=== PATIENT | female | born 1960 ===

== ENCOUNTER 2017-06-12 14:21 | Emergency (ER) | payer MEDICAID, OTHER ==
[2017-06-12 14:21] VITALS: BMI 29.0
[2017-06-12 14:41] VITALS: BP 150/91; PULSE 75; RESP 18; TEMP 97; O2SAT 100
--- NOTE | 2017-06-12 15:40 | ED PDOC ---
HPI: Female Pain Time Seen by Provider: 06/12/17 15:18 Chief Complaint (Nursing): Female Genitourinary Chief Complaint (Provider): Post menopausal bleeding History Per: Patient Additional Complaint(s): 57 yo female, PMH of HTN, presents to ED with complaints of lower abdominal pain vaginal bleeding x 3 days. Pt post menopausal x 4 yers now. Past Medical History Reviewed: Nursing Documentation, Vital Signs Vital Signs: Last Vital Signs Temp 97 F L 06/12/17 14:39 Pulse 75 06/12/17 14:39 Resp 18 06/12/17 14:39 BP 150/91 H 06/12/17 14:39 Pulse Ox 100 06/12/17 14:39 - Medical History PMH: HTN - Surgical History Surgical History: Cholecystectomy - Family History Family History: States: Unknown Family Hx - Living Arrangements Living Arrangements: With Family - Social History Current smoker - smoking cessation education provided: No Alcohol: None Drugs: Denies - Home Medications Home Medications: Ambulatory Orders Medication Instructions Recorded traMADol [Ultram] 50 mg PO Q8 PRN #12 tab 06/19/16 Ibuprofen [Motrin] 600 mg PO Q6 #20 tab 06/12/17 Sulfamethoxazole/Trimethoprim 1 tab PO BID 5 Days tab 06/12/17 [Bactrim DS 800 mg-160 mg] - Allergies Allergies/Adverse Reactions: Allergies Allergy/AdvReac Type Severity Reaction Status Date / Time No Known Allergies Allergy Verified 06/19/16 12:18 Review of Systems ROS Statement: Except As Marked, All Systems Reviewed And Found Negative Gastrointestinal: Positive for: Abdominal Pain Physical Exam - Reviewed Nursing Documentation Reviewed: Yes Vital Signs Reviewed: Yes - Physical Exam Appears: Positive for: Well, Non-toxic, No Acute Distress Head Exam: Positive for: ATRAUMATIC, NORMAL INSPECTION, NORMOCEPHALIC Skin: Positive for: Normal Color, Warm, DRY Eye Exam: Positive for: EOMI, Normal appearance, PERRL ENT: Positive for: Normal ENT Inspection Neck: Positive for: Normal, Painless ROM Cardiovascular/Chest: Positive for: Regular Rate, Rhythm Respiratory: Positive for: CNT, Normal Breath Sounds Gastrointestinal/Abdominal: Positive for: Normal Exam, Bowel Sounds, Soft Pelvic Exam: Positive for: External Exam Normal, Speculum Exam Normal. Negative for: Active Bleeding Back: Positive for: Normal Inspection Extremity: Positive for: Normal ROM Neurologic/Psych: Positive for: Alert, Oriented - Laboratory Results Result Diagrams: 06/12/17 16:14 06/12/17 16:14 - ECG O2 Sat by Pulse Oximetry: 100 Medical Decision Making Medical Decision Making: IV access established and treatment initiated with Toradol IV Diagnostics ordered Labs resulted and reviewed with Pt who demonstrated full understanding. IMPRESSION: The central endometrial echo complex is mildly thickened for postmenopausal status. With clinical history of postmenopausal bleeding, Clinical follow-up is advised and if clinically indicated, endometrial sampling may be performed to exclude carcinoma PICC No evidence of fibroid uterus. No ovarian cyst or adnexal mass. Importance of follow up with [facility] was stressed. Pt reports she will call clinic tomorrow for follow up Disposition - Clinical Impression Clinical Impression: Post-menopausal bleeding - Disposition [facility] Disposition Time: 17:00 Condition: STABLE Prescriptions: Ibuprofen [Motrin] 600 mg PO Q6 #20 tab Sulfamethoxazole/Trimethoprim [Bactrim DS 800 mg-160 mg] 1 tab PO BID 5 Days tab Instructions: Dysfunctional Uterine Bleeding (ED) Forms: [employer] ([place]) Print Language: NIGERIAN
[2017-06-12 16:18] LABS: BASO % 0.8 % (0.0-2.0); EOS # 0.2 K/uL (0.0-0.7); EOS % 3.1 % (0.0-4.0); HEMATOCRIT 41.3 % (34.0-47.0); LYMPH # 2.3 K/uL (1.0-4.3); MEAN CELL VOLUME 90.5 fl (81.0-99.0); MEAN CORPUSCULAR HEMOGLOBIN 30.2 pg (27.0-31.0); MEAN CORPUSCULAR HGB CONC 33.4 g/dL (33.0-37.0); MEAN PLATELET VOLUME 8.7 fl (7.2-11.7); MONO # 0.4 K/uL (0.0-0.8); MONO % 7.4 % (0.0-10.0); NEUT % 50.7 % (50.0-75.0); RED CELL DISTRIBUTION WIDTH 14.5 % (11.5-14.5)
[2017-06-12 16:28] LABS: RBC URINE 1 /hpf (0-3); URINE BACTERIA MANY (<OCC); URINE BILIRUBIN NEGATIVE (NEGATIVE); URINE BLOOD NEGATIVE (NEGATIVE); URINE COLOR YELLOW (YELLOW); URINE GLUCOSE (UA) NEG (Normal); URINE KETONE NEGATIVE (NEGATIVE); URINE LEUKOCYTE ESTERASE NEG Leu/uL (Negative); URINE PROTEIN NEGATIVE (NEGATIVE); URINE UROBILINOGEN 0.2-1.0 mg/dL (0.2-1.0); WBC URINE 6 /hpf (0-5)
[2017-06-12 16:36] LABS: BILIRUBIN,TOTAL 0.8 mg/dl (0.2-1.3); CALCIUM 9.2 mg/dL (8.4-10.2); CARBON DIOXIDE 25 mmol/L (22-30); CHLORIDE 103 mmol/L (98-107); GFR AFRICAN-AMERICAN > 60; GLUCOSE,RANDOM 89 mg/dL (65-105); SODIUM 139 mmol/l (132-148)
[2017-06-12 16:37] LABS: ALB/GLOB RATIO 1.3 (1.0-2.1); ALKALINE PHOSPHATASE 94 U/L (38-126); ALT/SGPT 67 U/L (9-52); AST/SGOT 51 U/L (14-36); BLOOD UREA NITROGEN 16 mg/dl (7-17); POTASSIUM 4.6 MMOL/L (3.6-5.0); TOTAL PROTEIN 8.4 G/DL (6.3-8.2)
[2017-06-12 16:39] LABS: PARTIAL THROMBOPLASTIN TIME 28.4 Seconds (25.6-37.1)
--- NOTE | 2017-06-12 17:04 | US ---
HISTORY: post menopausal pain/bleeding COMPARISON: None available. TECHNIQUE: Transabdominal pelvic ultrasound was performed. FINDINGS: UTERUS: Measures 10.6 x 4.0 x 5.7 cm. Anteverted, normal in size and appearance. No fibroid or other mass lesion seen. ENDOMETRIUM: Measures 5 mm in diameter. Limited evaluation on transabdominal examination reveals grossly normal appearance. CERVIX: No cervical abnormality identified. RIGHT OVARY: Measures 2.0 x 2.0 x 1.6 cm. No solid mass. Normal flow. LEFT OVARY: Measures 2.5 x 1.3 x 2.1 cm. No solid mass. Normal flow. FREE FLUID: No significant free fluid noted. OTHER FINDINGS: None. IMPRESSION: The central endometrial echo complex is mildly thickened for postmenopausal status. With clinical history of postmenopausal bleeding, Clinical follow-up is advised and if clinically indicated, endometrial sampling may be performed to exclude carcinoma PICC No evidence of fibroid uterus. No ovarian cyst or adnexal mass.
== END 2017-06-12 18:47 | disposition home or self-care (01) ==
LOC: H.ER 14:21
DX: N95.0 Postmenopausal bleeding (principal); I10 Essential (primary) hypertension; Z78.0 Asymptomatic menopausal state